=== PATIENT | female | born 1980 | race Caucasian/White ===

== ENCOUNTER 2017-04-11 07:26 | Emergency (ER) | payer OTHER ==
[~2017-04-11] VITALS: Ht 162.6 cm; Wt 80.0 kg
[~2017-04-11 07:26] MED LIST: Z.0.NO CURRENT MEDS
[2017-04-11 07:31] VITALS: BP 142/73; PULSE 90; RESP 14; TEMP 99.1; O2SAT 98
--- NOTE | 2017-04-11 07:59 | PD ---
HPI Chief Complaint: Pain: Acute or Chronic Time Seen by Provider: 07:55 Travel History International Travel<30 days: No Contact w/Intl Traveler<30days: No Traveled to known affect area: No History of Present Illness HPI 36 year-old female presents to the emergency department for evaluation of right shoulder pain. Patient states she was going on a slide with her purse on when it got caught. This caused her to do a somersault flip. She did not strike her head or lose consciousness but has been having anterior right shoulder pain since. Rates it a 6 out of 10, constant and aching, exacerbated with movement. Denies alterations in sensation. No fever chills. No chest tightness. No other symptoms to report. PFSH Past Medical History Asthma: Yes Diminished Hearing: No Gestational Age in Weeks: 6 : 3 Para: 2 Miscarriage: 1 Ectopic : Yes (2001) Past Surgical History Gynecologic Surgery: Yes (ECTOPIC TERMINATED 2001) Other Surgery: Yes (LUMPECTOMY BILATERAL) Social History Alcohol Use: Yes (OCCASIONAL) Tobacco Use: Yes (6-7/DAY) Substance Use: No Allergies-Medications (Allergen,Severity, Reaction): Coded Allergies: acetaminophen (Unverified Allergy, Mild, GI UPSET, 02/08/17) propoxyphene (Unverified Allergy, Mild, GI UPSET, 02/08/17) Reported Meds & Prescriptions Reported Meds & Active Scripts Active Robaxin (Methocarbamol) 500 Mg Tab 500 Mg PO QID PRN Ibuprofen 800 Mg Tab 800 Mg PO Q8H PRN Reported No Current Meds (Miscellaneous Medication) Misc Review of Systems Except as stated in HPI: all other systems reviewed are Neg Physical Exam Narrative GENERAL: Well-nourished, well-developed female patient, ambulatory no acute distress SKIN: Focused skin assessment warm/dry. HEAD: Normocephalic. EYES: No scleral icterus. No injection or drainage. NECK: Supple, trachea midline. No JVD or lymphadenopathy. CARDIOVASCULAR: Regular rate and rhythm without murmurs, gallops, or rubs. RESPIRATORY: Breath sounds equal bilaterally. No accessory muscle use. GASTROINTESTINAL: Abdomen soft, non-tender, nondistended. MUSCULOSKELETAL: No cyanosis, or edema. Tenderness elicited palpation of the distal right clavicle. No deformity. No crepitus. No tenting. Patient can fully rotate the right shoulder but does report pain with doing so. Distal pulses are palpable. Cap refill is within normal limits. BACK: Nontender without obvious deformity. No CVA tenderness. Data Data Last Documented VS Vital Signs Date Time Temp Pulse Resp B/P (MAP) Pulse Ox O2 Delivery O2 Flow Rate FiO2 04/11/17 08:47 04/11/17 07:31 99.1 90 14 98 Orders Orders Shoulder, Complete (>2vws) (04/11/17 ) Ibuprofen (Motrin) (04/11/17 08:00) Splint Or Brace Apply/Monitor (04/11/17 08:33) Ed Discharge Order (04/11/17 08:35) Sling Cradle Arm (04/11/17 ) [facility] Medical Decision Making Medical Screen Exam Complete: Yes Emergency Medical Condition: Yes Medical Record Reviewed: Yes Differential Diagnosis Shoulder strain versus sprain versus fracture versus dislocation Narrative Course 36 year-old female presents to the emergency room for evaluation right shoulder injury. Patient appears without distress. No obvious deformity. Extremities neurovascularly intact. Last Impressions Shoulder X-Ray 04/11/17 0000 Signed Impressions: Service Date/Time: Tuesday, April 11, 2017 08:12 - CONCLUSION: No acute fracture. Lopez Ruelas MD Results discussed with the patient. She'll be treated for pain, counseled on care, and encouraged to follow-up with a primary care provider. She agrees to return immediately with any acute worsening symptoms. Diagnosis Primary Impression: Right shoulder strain Qualified Codes: S46.911A - Strain of unspecified muscle, fascia and tendon at shoulder and upper arm level, right arm, initial encounter Referrals: Orthopaedic Surgeon Primary Care Physician Patient Instructions: Exercises for Internal and External Shoulder Rotation (ED ), Exercises for Shoulder Abduction and Adduction (ED), Exercises for Shoulder Flexion and Extension (ED), General Instructions Additional Instructions: Ice to the affected area Follow-up with a primary care provider Seek orthopedic evaluation if symptoms persist Sling for support. Do not wear this at all times and practice range of motion exercises to reduce the frozen shoulder Return immediately to the emergency department with any acute worsening of symptoms Med/Other Pt SpecificInfo: Prescription(s) given Scripts Methocarbamol (Robaxin) 500 Mg Tab 500 MG PO QID Y for MUSCLE SPASM, #20 TAB 0 Refills Prov: Ami Hammond 04/11/17 Ibuprofen (Ibuprofen) 800 Mg Tab 800 MG PO Q8H Y for Pain/Inflammation, #30 TAB 0 Refills Prov: Ami Hammond 04/11/17 Disposition: 01 DISCHARGE HOME Condition: Stable Ami Hammond Apr 11, 2017 07:59
[2017-04-11] MEDS ORDERED: IBUPROFEN 800 MG TAB PO ONE (08:00)
--- NOTE | 2017-04-11 08:18 | RADRPT ---
EXAM DATE/TIME: 04/11/2017 08:12 [place] COMPARISON: No previous studies available for comparison. INDICATIONS : Right shoulder pain post fall. MEDICAL HISTORY : Asthma. SURGICAL HISTORY : Lobectomy. ENCOUNTER: Initial ACUITY: 3 days PAIN SCORE: 4/10 LOCATION: Right shoulder. FINDINGS: Multiple view examination of the right shoulder demonstrates no evidence of fracture or dislocation. The glenohumeral and acromioclavicular joints are maintained. There is normal range of motion betwe en internal and external rotation. Bony mineralization is normal. CONCLUSION: No acute fracture. Lopez Ruelas MD on April 11, 2017 at 8:16 Board Certified Radiologist. This report was verified electronically.
[2017-04-11] MEDS ORDERED: ROBA500T PO (08:37)
[2017-04-11] MEDS ORDERED: IBUP800T23 PO (08:37)
== END 2017-04-11 08:49 | disposition home or self-care (01) ==
LOC: NEPK 07:26
DX: S46.911A Strain of unspecified muscle, fascia and tendon at shoulder and upper arm level, right arm, initial encounter (principal); X50.1XXA Overexertion from prolonged static or awkward postures, initial encounter; Y93.I9 Activity, other involving external motion; Z72.0 Tobacco use
CPT/HCPCS: 73030; 99283

== ENCOUNTER 2017-07-30 17:43 | Emergency (ER) | payer OTHER ==
[~2017-07-30] VITALS: Ht 162.6 cm; Wt 75.0 kg
[~2017-07-30 17:43] MED LIST changes: +IBUP1TAB7 PO; +ROBA500T PO
[2017-07-30 17:44] VITALS: BP 120/73; PULSE 157; RESP 22; TEMP 99.2; O2SAT 99
[2017-07-30 17:50] VITALS: BP 128/79; PULSE 131; RESP 21; TEMP 98.3; O2SAT 99
[2017-07-30] MEDS ORDERED: IBUP200C PO (18:00)
[2017-07-30] MEDS ORDERED: ONDANSETRON HCL 4 MG/2 ML VIAL IV ONE (18:00)
[2017-07-30] MEDS ORDERED: LOPERAMIDE HCL 2 MG CAP PO ONE ×2 (18:00→19:30)
[2017-07-30] MEDS ORDERED: SODIUM CHLOR 0.9% 1000 ML INJ 1,000 ML IV ONE ×2 (18:00)
[2017-07-30 18:37] LABS: AUTOMATED NEUTROPHIL # 9.2 TH/MM3 (1.8-7.7); BASOPHIL # 0.1 TH/MM3 (0-0.2); BASOPHIL % 0.5 % (0.0-2.0); EOSINOPHIL # 0.1 TH/MM3 (0-0.4); EOSINOPHIL % 0.6 % (0.0-4.0); HEMATOCRIT 41.5 % (35.0-46.0); HEMOGLOBIN 14.4 GM/DL (11.6-15.3); LYMPH % 10.5 % (9.0-44.0); LYMPHOCYTE # 1.2 TH/MM3 (1.0-4.8); MEAN CELL VOLUME 93.4 FL (80.0-100.0); MEAN CORPUSCULAR HEMOGLOBIN 32.4 PG (27.0-34.0); MEAN CORPUSCULAR HGB CONC 34.6 % (32.0-36.0); MEAN PLATELET VOLUME 6.8 FL (7.0-11.0); MONO % 4.7 % (0.0-8.0); MONOCYTE # 0.5 TH/MM3 (0-0.9); NEUT % 83.7 % (16.0-70.0); PLATELET COUNT 343 TH/MM3 (150-450); RED BLOOD COUNT 4.45 MIL/MM3 (4.00-5.30)
[2017-07-30 18:38] LABS: ALBUMIN 4.5 GM/DL (3.4-5.0); ALT (GPT) 34 U/L (10-53); AST (GOT) 18 U/L (15-37); BICARBONATE 22.4 MEQ/L (21.0-32.0); BLOOD UREA NITROGEN 16 MG/DL (7-18); CHLORIDE 109 MEQ/L (98-107); CREATININE 0.95 MG/DL (0.50-1.00); GLOMERULAR FILTRATION RATE 67 ML/MIN (>89); GLUCOSE,RANDOM 96 MG/DL (74-106); SODIUM (NA) 143 MEQ/L (136-145)
[2017-07-30 18:40] LABS: ALKALINE PHOSPHATASE 80 U/L (45-117); TOTAL BILIRUBIN ADULT 0.8 MG/DL (0.2-1.0); TOTAL PROTEIN 8.5 GM/DL (6.4-8.2)
[2017-07-30 18:43] VITALS: BP 118/92; PULSE 98; RESP 20; O2SAT 99
[2017-07-30] MEDS ORDERED: ZOFR4TAB3 SL (18:51)
[2017-07-30] MEDS ORDERED: LOPE2CAP PO (18:51)
--- NOTE | 2017-07-30 18:51 | PD ---
HPI Chief Complaint: GI Complaint Time Seen by Provider: 17:55 Travel History International Travel<30 days: No Contact w/Intl Traveler<30days: No Traveled to known affect area: No History of Present Illness HPI 36-year-old woman, presents emerged from point of nausea vomiting copious watery diarrhea starting today. Some mild abdominal cramping. No fevers. No bloody diarrhea. No definite sick contacts. Family member had some diarrhea bottom month or so ago, but nothing more recent. No suspect foods, recent travel. No antibiotic or healthcare exposures. Multiple episodes of copious vomiting, and copious watery diarrhea. Symptoms been constant, worsening since onset. She tried some Zofran that she had at home from when a family member was sick in the past, without significant relief. History Past Medical History Medical History: Denies Significant Hx Tetanus Vaccination: Unknown : 3 Para: 2 Social History Alcohol Use: Yes (OCCASIONAL) Tobacco Use: Yes (6-7/DAY) Allergies-Medications (Allergen,Severity, Reaction): Coded Allergies: codeine (Verified Allergy, Intermediate, nausea, 07/30/17) acetaminophen (Unverified Allergy, Mild, GI UPSET, 07/30/17) propoxyphene (Unverified Allergy, Mild, GI UPSET, 07/30/17) Reported Meds & Prescriptions Reported Meds & Active Scripts Active Robaxin (Methocarbamol) 500 Mg Tab 500 Mg PO QID PRN Ibuprofen 800 Mg Tab 800 Mg PO Q8H PRN Reported Ibuprofen 200 Mg Cap 400 Mg PO Q6H PRN Review of Systems Except as stated in HPI: all other systems reviewed are Neg Physical Exam Narrative GENERAL: 36-year-old woman, appears uncomfortable but not toxic. SKIN: Focused skin assessment warm/dry. HEAD: Atraumatic. Normocephalic. EYES: Pupils equal and round. No scleral icterus. No injection or drainage. ENT: No nasal bleeding or discharge. Mucous membranes pink and moist. NECK: Trachea midline. No JVD. CARDIOVASCULAR: Heart rate is rapid. Patient does appeared generally well perfused. No murmurs. RESPIRATORY: No accessory muscle use. Clear to auscultation. Breath sounds equal bilaterally. GASTROINTESTINAL: Abdomen soft, non-tender, nondistended. Hepatic and splenic margins not palpable. Benign exam. MUSCULOSKELETAL: No obvious deformities. No clubbing. No cyanosis. No edema. NEUROLOGICAL: Awake and alert. No obvious cranial nerve deficits. Motor grossly within normal limits. Normal speech. PSYCHIATRIC: Appropriate mood and affect; insight and judgment normal. Data Data Last Documented VS Vital Signs Date Time Temp Pulse Resp B/P (MAP) Pulse Ox O2 Delivery O2 Flow Rate FiO2 07/30/17 18:43 98 20 118/92 (101) 99 Room Air 07/30/17 17:50 98.3 Orders Orders Complete Blood Count With Diff (07/30/17 17:55) Comprehensive Metabolic Panel (07/30/17 17:55) Lactic Acid Sepsis Protocol (07/30/17 17:55) Iv Access Insert/Monitor (07/30/17 17:55) Sodium Chlor 0.9% 1000 Ml Inj (Ns 1000 M (07/30/17 18:00) Sodium Chlor 0.9% 1000 Ml Inj (Ns 1000 M (07/30/17 18:00) Ondansetron Inj (Zofran Inj) (07/30/17 18:00) Loperamide (Imodium) (07/30/17 18:00) Labs Laboratory Tests Test 07/30/17 18:11 White Blood Count 11.0 TH/MM3 Red Blood Count 4.45 MIL/MM3 Hemoglobin 14.4 GM/DL Hematocrit 41.5 % Mean Corpuscular Volume 93.4 FL Mean Corpuscular Hemoglobin 32.4 PG Mean Corpuscular Hemoglobin Concent 34.6 % Red Cell Distribution Width 14.0 % Platelet Count 343 TH/MM3 Mean Platelet Volume 6.8 FL Neutrophils (%) (Auto) 83.7 % Lymphocytes (%) (Auto) 10.5 % Monocytes (%) (Auto) 4.7 % Eosinophils (%) (Auto) 0.6 % Basophils (%) (Auto) 0.5 % Neutrophils # (Auto) 9.2 TH/MM3 Lymphocytes # (Auto) 1.2 TH/MM3 Monocytes # (Auto) 0.5 TH/MM3 Eosinophils # (Auto) 0.1 TH/MM3 Basophils # (Auto) 0.1 TH/MM3 CBC Comment DIFF FINAL Differential Comment Blood Urea Nitrogen 16 MG/DL Creatinine 0.95 MG/DL Random Glucose 96 MG/DL Total Protein 8.5 GM/DL Albumin 4.5 GM/DL Calcium Level 9.0 MG/DL Alkaline Phosphatase 80 U/L Aspartate Amino Transf (AST/SGOT) 18 U/L Alanine Aminotransferase (ALT/SGPT) 34 U/L Total Bilirubin 0.8 MG/DL Sodium Level 143 MEQ/L Potassium Level 3.5 MEQ/L Chloride Level 109 MEQ/L Carbon Dioxide Level 22.4 MEQ/L Anion Gap 12 MEQ/L Estimat Glomerular Filtration Rate 67 ML/MIN Lactic Acid Level 1.9 mmol/L MDM Medical Decision Making Medical Screen Exam Complete: Yes Emergency Medical Condition: Yes Interpretation(s) LABS: CBC is unremarkable. CMP is unremarkable. Lactate 1.9. Differential Diagnosis Acute gastroenteritis, foodborne illness, enteritis, colitis, IBD, influenza, other Narrative Course Medical decision making about 36-year-old presents emergency department with nausea vomiting of his watery diarrhea. She appears dehydrated. Heart rate elevated. She looks generally well. She has benign abdominal exam. She had good response to IV fluids and supportive treatment. Labs are unremarkable. Loperamide, Zofran, reassess. Diagnosis Primary Impression: Acute gastroenteritis Additional Impression: Dehydration Additional Instructions: Zofran as needed for nausea or vomiting. The loperamide as needed for diarrhea. Drink plenty of fluids stay well-hydrated. Return to the emergency department for any worsening abdominal pain, high fevers , bloody diarrhea, dehydration, lightheadedness or dizziness, or any other new or worsening symptoms. Med/Other Pt SpecificInfo: Prescription(s) given Scripts Loperamide (Loperamide) 2 Mg Cap 2 MG PO DIRECTED Y for DIARRHEA, #6 CAP 0 Refills One capsule after each loose stool. Not to exceed 8 capsules per day. Prov: Cj Riley MD 07/30/17 Ondansetron Odt (Zofran Odt) 4 Mg Tab 4 MG SL Q8HR Y for Nausea/Vomiting, #15 TAB 0 Refills Prov: Cj Riley MD 07/30/17 Disposition: 01 DISCHARGE HOME Condition: Stable Cj Riley MD Jul 30, 2017 18:51
== END 2017-07-30 20:08 | disposition home or self-care (01) ==
LOC: NEPC 17:43
DX: K52.9 Noninfective gastroenteritis and colitis, unspecified (principal); E86.0 Dehydration; F17.200 Nicotine dependence, unspecified, uncomplicated
CPT/HCPCS: 80053; 83605; 85025; 96374; 99284; J2405; J7030

== ENCOUNTER 2017-12-07 08:19 | Emergency (ER) | payer OTHER ==
[~2017-12-07] VITALS: Ht 162.6 cm; Wt 75.0 kg
[~2017-12-07 08:19] MED LIST changes: +IBUP200C PO; +LOPE2CAP PO; -Z.0.NO CURRENT MEDS; +ZOFR4TAB3 SL
[2017-12-07 08:25] VITALS: BP 139/86; PULSE 81; RESP 16; TEMP 98.3; O2SAT 99
[2017-12-07] MEDS ORDERED: IBUPROFEN 800 MG TAB PO ONE (08:45)
--- NOTE | 2017-12-07 08:50 | PD ---
HPI Chief Complaint: Injury Time Seen by Provider: 08:32 Travel History International Travel<30 days: No Contact w/Intl Traveler<30days: No Traveled to known affect area: No History of Present Illness HPI Patient is a 37-year-old female presenting to emerge from for evaluation of left knee pain. Patient states she was getting out of her hot tub which is approximately 3-4 feet off the ground when she slipped on the milk crate that was next to it twisting her knee and falling onto the milk crate. Patient states she cannot fully extend her leg and it is hard to bear weight. Patient states the pain at its worst is 8 out of 10, constant, nagging and aching. When she ambulates the pain shoots from her knee to her medial thigh. She denies any other injury or trauma. Patient has not taken any medications to alleviate the pain. Symptom onset was sudden, symptoms are moderate in nature. There are no alleviating factors. PFSH Past Medical History Asthma: Yes Diminished Hearing: No Gestational Age in Weeks: 6 Respiratory: Yes Tetanus Vaccination: Unknown Influenza Vaccination: Yes ?: Not LMP: NOV 08 2017 : 3 Para: 2 Miscarriage: 1 Ectopic : Yes (2001) Past Surgical History Gynecologic Surgery: Yes (ECTOPIC TERMINATED 2001) Other Surgery: Yes (LUMPECTOMY BILATERAL) Social History Alcohol Use: Yes (OCCASIONAL) Tobacco Use: Yes (6-7/DAY) Substance Use: No Allergies-Medications (Allergen,Severity, Reaction): Coded Allergies: codeine (Verified Allergy, Intermediate, nausea, 12/07/17) acetaminophen (Unverified Allergy, Mild, GI UPSET, 12/07/17) propoxyphene (Unverified Allergy, Mild, GI UPSET, 12/07/17) Reported Meds & Prescriptions Reported Meds & Active Scripts Active No Active Prescriptions or Reported Medications Review of Systems Except as stated in HPI: all other systems reviewed are Neg Musculoskeletal: Positive: Myalgias, Arthralgias, Limited ROM, Edema, Pain Physical Exam Narrative GENERAL: Well-developed, well-nourished, alert female. Presenting in no acute distress. SKIN: Warm and dry. HEAD: Atraumatic. Normocephalic. EYES: Pupils equal and round. No scleral icterus. No injection or drainage. ENT: No nasal bleeding or discharge. Mucous membranes pink and moist. NECK: Trachea midline. No JVD. CARDIOVASCULAR: Regular rate and rhythm. RESPIRATORY: No accessory muscle use. Clear to auscultation. Breath sounds equal bilaterally. GASTROINTESTINAL: Abdomen soft, non-tender, nondistended. Hepatic and splenic margins not palpable. MUSCULOSKELETAL: Extremities without clubbing, cyanosis, mild edema to the medial aspect of the left knee anteriorly. No obvious deformities. Tenderness to palpation to the medial aspect of left knee. Decreased range of motion with extension. NEUROLOGICAL: Awake and alert. No obvious cranial nerve deficits. Motor grossly within normal limits. Five out of 5 muscle strength in the arms and legs. Normal speech. PSYCHIATRIC: Appropriate mood and affect; insight and judgment normal. Data Data Last Documented VS Vital Signs Date Time Temp Pulse Resp B/P (MAP) Pulse Ox O2 Delivery O2 Flow Rate FiO2 12/07/17 08:32 18 Room Air 12/07/17 08:25 98.3 81 139/86 (103) 99 Orders Orders Knee, Complete (4vws) (12/07/17 ) Ice/Cold Pack (12/07/17 08:35) Ibuprofen (Motrin) (12/07/17 08:45) MDM Medical Decision Making Medical Screen Exam Complete: Yes Emergency Medical Condition: Yes Interpretation(s) Last Impressions Knee X-Ray 12/07/17 0000 Signed Impressions: CONCLUSION: Negative examination Vital Signs Date Time Temp Pulse Resp B/P (MAP) Pulse Ox O2 Delivery O2 Flow Rate FiO2 12/07/17 08:32 18 Room Air 12/07/17 08:25 98.3 81 16 139/86 (103) 99 Differential Diagnosis Sprain versus strain versus fracture versus other Narrative Course Patient is well-appearing 37-year-old female presenting to the emergency department for evaluation of left knee pain after twisting it last night. Patient is neurovascularly intact, her vital signs are stable. Will obtain an x -ray of the left knee, she will be given ibuprofen and ice for comfort. X-rays negative for acute abnormality. Patient will be given crutches for support, she is encouraged to increase weightbearing as tolerated, continue range of motion exercises, alternate heat and ice the affected area. Patient was encouraged to follow-up with Dr. Boyer. She is encouraged return to emergency department for any new worsening symptoms. Patient verbalized understanding of these instructions. Patient stable for discharge. Diagnosis Primary Impression: Knee sprain Qualified Codes: S83.92XA - Sprain of unspecified site of left knee, initial encounter Referrals: Primary Care Physician 1 week Patient Instructions: General Instructions, Knee Exercises (GEN), Knee Sprain ( GEN), Knee Sprain Exercises (GEN) Additional Instructions: Follow-up with your primary doctor Use crutches as needed, increase weightbearing as tolerated Rest, ice, elevate extremity Take medications as directed Return to emergency department for any new or worsening symptoms Med/Other Pt SpecificInfo: Prescription(s) given Scripts Ibuprofen (Ibuprofen) 800 Mg Tab 800 MG PO Q6HR Y for PAIN, #40 TAB 0 Refills Prov: Irene Azevedo 12/07/17 Disposition: 01 DISCHARGE HOME Condition: Stable Irene Azevedo Dec 07, 2017 08:50
--- NOTE | 2017-12-07 09:27 | RADRPT ---
EXAM DATE: 12/07/2017 8:50 AM EDT AGE/SEX: 37 years / Female INDICATIONS: Left medial knee pain after jumping and knee buckled. CLINICAL DATA: This is the patient's initial encounter. Patient reports that signs and symptoms have been present for 1 day and indicates a pain score of 3/10. MEDICAL/SURGICAL HISTORY: None. None. COMPARISON: No prior exams available for comparison. FINDINGS: Bony structures are intact and in normal alignment. Joints are intact without dislocation or signifi cant arthropathy. Osseous density is normal. Soft tissues are unremarkable. No radiopaque foreign bodies seen. CONCLUSION: Negative examination Electronically signed by: Saad Marcelo MD 12/07/2017 9:25 AM EDT
[2017-12-07] MEDS ORDERED: IBUP1TAB7 PO (09:45)
[2017-12-07 10:14] VITALS: BP 102/57
== END 2017-12-07 10:13 | disposition home or self-care (01) ==
LOC: NEPD 08:19
DX: S83.92XA Sprain of unspecified site of left knee, initial encounter (principal); Z72.0 Tobacco use; Z87.09 Personal history of other diseases of the respiratory system; X50.1XXA Overexertion from prolonged static or awkward postures, initial encounter; W17.89XA Other fall from one level to another, initial encounter
CPT/HCPCS: 73564; 99283; E0113